=== PATIENT | female | born 1970 | race Caucasian/White ===

== ENCOUNTER 2018-06-09 09:13 | Inpatient (IN) | payer MEDICAID ==
[~2018-06-09] VITALS: Ht 172.7 cm; Wt 90.0 kg
[2018-06-09] VITALS (29 sets, daily range): BP systolic 104–137; BP diastolic 52–74; PULSE 55–93; TEMP 97.5–98.3
[~2018-06-09 09:13] MED LIST: CALCIUM 600600 M2 PO; MOTRIN 600600 MG/TAB PO; NORCO 325 MG-101 TAB PO; PERCOCET 325 MG1 TA2 PO; PRENATAL1 TA1 PO; PROTONIX 40MG T40 MG PO; PROTONIX20 MG PO
[2018-06-09 10:25] LABS: BASO # 0.1 (0.0-0.2); BASO % 0.5 % (0.0-2.0); EOS # 0.1 (0.0-0.7); EOS % 0.9 % (0-4.0); GRAN # 8.4 (1.4-6.5); GRAN % 79.7 % (42.2-75.2); LYMPH # 1.4 (1.2-3.4); LYMPH % 12.9 % (20.0-51.0); MEAN CELL VOLUME 92 fl (80.0-100.0); MEAN CORPUSCULAR HEMOGLOBIN 31 pg (27.0-31.0); MEAN CORPUSCULAR HGB CONC 33 g/dl (33.0-37.0); MEAN PLATELET VOLUME 10.8 fl (7.4-10.4); MONO # 0.6 (0.1-0.6); MONO % 5.3 % (1.7-9.3); PLATELET COUNT 265 K/mm3 (130-400); RED BLOOD COUNT 3.57 M/mm3 (4.10-5.30)
[2018-06-10 04:05] VITALS: BP 104/63; PULSE 79; TEMP 98.2
[2018-06-10 07:00] VITALS: BP 126/69; PULSE 75; TEMP 97.5
[2018-06-10] MEDS ORDERED: IBU600 MG PO (09:52)
[2018-06-10 12:00] VITALS: BP 107/53; PULSE 75
[2018-06-10 19:25] VITALS: BP 114/58; PULSE 61; TEMP 98.1
[2018-06-11 08:31] VITALS: BP 125/57; PULSE 70; TEMP 97.7
== END 2018-06-11 09:45 | disposition home or self-care (01) | DRG 805 ==
LOC: LDRO 09:13 → LDR 09:20 → OB 18:43
PROVIDERS: Obstetrics & Gynecology
PROC: 10E0XZZ Delivery of Products of Conception, External Approach (ICD-10-PCS; principal; 2018-06-09)
PROC: 0UQMXZZ Repair Vulva, External Approach (ICD-10-PCS; 2018-06-09)
DX: O70.0 First degree perineal laceration during delivery (principal); O45.93 Premature separation of placenta, unspecified, third trimester; Z37.0 Single live birth; Z3A.39 39 weeks gestation of pregnancy
CPT/HCPCS: J2590; J7120

== ENCOUNTER 2019-09-06 06:51 | Inpatient (IN) | payer MEDICAID ==
[~2019-09-06] VITALS: Ht 172.7 cm; Wt 86.4 kg
[2019-09-06] VITALS (41 sets, daily range): BP systolic 95–148; BP diastolic 52–89; PULSE 60–91; TEMP 97.2–98.6
[~2019-09-06 06:51] MED LIST changes: +IBU600 MG PO
[2019-09-06 07:44] LABS: BASO % 0.4 % (0.0-2.0); EOS # 0.1 (0.0-0.7); EOS % 1.9 % (0-4.0); GRAN # 4.5 (1.4-6.5); GRAN % 65.4 % (42.2-75.2); HEMOGLOBIN 10.9 g/dl (12.5-16.0); LYMPH # 1.5 (1.2-3.4); LYMPH % 22.1 % (20.0-51.0); MEAN CELL VOLUME 91 fl (80.0-100.0); MEAN CORPUSCULAR HEMOGLOBIN 31 pg (27.0-31.0); MEAN CORPUSCULAR HGB CONC 35 g/dl (33.0-37.0); MEAN PLATELET VOLUME 11.1 fl (7.4-10.4); MONO # 0.7 (0.1-0.6); MONO % 9.5 % (1.7-9.3); PLATELET COUNT 216 K/mm3 (130-400); RED BLOOD COUNT 3.47 M/mm3 (4.10-5.30); REDCELL DISTRIBUTION WIDTH-CV 13.1 % (11.5-14.5)
--- NOTE | 2019-09-06 07:45 | NUR ---
0735: Nena PUBLISHING MANAGER at bedside for epidural placement. 0740: Lidocaine. 0741: Single Shot given, no adverse reactions noted. 0745: Patient repositioned to left tilt. This RN remains at bedside.
[2019-09-06 07:46] LABS: HEMATOCRIT 31.6 % (37.0-47.0)
--- NOTE | 2019-09-06 07:53 | NUR ---
0700 PATIENT HERE FROM HOME WITH A SROM LARGE AMOUNT OF CLEAR FLUID. ASSESSMENT COMPLETED. IV STARTED IN LEFT HAND AND LR HUNG AT THIS TIME. EFM ON FHT 130 BABY VERY ACTIVE. NO CONTRACTIONS NOTED AT THIS TIME. DR LARSON CALLED AND UPDATED. SVE 3-4/-2 LARGE AMOUNT CLEAR FLUID NOTED. 0730 PITOCIN STARTED AT 2 AT THIS TIME. PATIENT SITS UP FOR EPIDURAL PLACEMENT REPORT GIVEN TO PILAR GUERRA RN TO ASSUME CARE.
--- NOTE | 2019-09-06 08:20 | NUR ---
0815: to bedside. SVE /-2, large amount of clear fluid with exam. 0820: Julian catheter placed. Patient repositioned to left lateral with peanut ball in place.
--- NOTE | 2019-09-06 09:20 | NUR ---
SVE unchanged per , /-2. Patient repositioned to right tilt with peanut ball in place.
--- NOTE | 2019-09-06 10:10 | NUR ---
to bedside. SVE unchanged per provider. Patient repositioned to "kathrin position". Denies needs. at bedside.
--- NOTE | 2019-09-06 11:00 | NUR ---
to bedside for variable deceleration into 50s. SVE unchanged. Patient repositioned to right lateral with peanut ball in place.
--- NOTE | 2019-09-06 11:15 | NUR ---
1105- Bedside report received from CHANDA Huang. Dr Medrano at nurses station reviewing strip. Pt tolerating labor well, comfortable with epidural.
--- NOTE | 2019-09-06 13:30 | NUR ---
1320- Recurrent FHR late decels noted. Pt repositioned to high fowlers.
--- NOTE | 2019-09-06 15:48 | NUR ---
1520- Pt reports feeling contractions and legs feeling normal, like epidural not working well. Shanae Quintero CRNA called to bedside. SVE by this RN, Pt complete/+2. Dr Medrano called for delivery. Room and Pt prepped. Iza, Nursery RN at bedside. 1535- Julian out. Pitocin off. 1545- Dr Medrano at bedside. 1548- Viable male infant born via . to mother's abd, tended to by nursery RN. Cord clamped and cut. Cord blood obtained. 155- Spontaneous delivery of placenta, Pitocin on at 333ml/hr. Fundus massaged to firm, moderate/heavy bleeding noted. Methergine order obtained, see EMAR. Pericare compelted and ice pack on. Pt resting comfortably.
--- NOTE | 2019-09-06 18:00 | NUR ---
1800- Pt ambulates to bathroom with standby assit x1. Voids without difficulty. Pt requests to shower, supplies given, at bedside. Pt tolerated well.
[2019-09-07 01:00] VITALS: BP 127/59; PULSE 88; TEMP 98.2
[2019-09-07 08:30] VITALS: BP 113/70; PULSE 70; TEMP 97.6
[2019-09-07] MEDS ORDERED: IBU800 M1 PO (11:05)
[2019-09-07 13:10] VITALS: BP 116/74; PULSE 71; TEMP 97.8
== END 2019-09-07 19:10 | disposition home or self-care (01) | DRG 805 ==
LOC: LDRO 06:51 → LDR 07:25 → OB 07:25
PROVIDERS: ADMIT Obstetrics & Gynecology
PROC: 10E0XZZ Delivery of Products of Conception, External Approach (ICD-10-PCS; principal; 2019-09-06)
PROC: 0KQM0ZZ Repair Perineum Muscle, Open Approach (ICD-10-PCS; 2019-09-06)
DX: O42.02 Full-term premature rupture of membranes, onset of labor within 24 hours of rupture (principal); O45.93 Premature separation of placenta, unspecified, third trimester; Z37.0 Single live birth; O71.4 Obstetric high vaginal laceration alone; Z3A.39 39 weeks gestation of pregnancy; O99.62 Diseases of the digestive system complicating childbirth; K21.9 Gastro-esophageal reflux disease without esophagitis; O99.02 Anemia complicating childbirth; G89.29 Other chronic pain; M54.9 Dorsalgia, unspecified; O40.3XX0 Polyhydramnios, third trimester, not applicable or unspecified; O75.89 Other specified complications of labor and delivery
CPT/HCPCS: J2210; J2590; J2795; J7120

== ENCOUNTER → 2019-12-07 | Outpatient (CLI) | payer MEDICAID ==
[~2019-12-07] MED LIST changes: +IBU800 M1 PO
== END ==
LOC: COL.RAD 14:15
DX: Z31.41 Encounter for fertility testing (principal); Z87.42 Personal history of other diseases of the female genital tract

== ENCOUNTER → 2020-02-11 | Outpatient (CLI) | payer MEDICAID | LOC: COL.LAB 10:36 | DX: O20.0 Threatened abortion (principal) ==

== ENCOUNTER 2020-08-24 13:43 | Inpatient (IN) | payer MEDICAID ==
[~2020-08-24] VITALS: Ht 172.7 cm; Wt 96.8 kg
[2020-08-24] VITALS (15 sets, daily range): BP systolic 92–134; BP diastolic 48–74; PULSE 69–93; TEMP 97.8–97.9
--- NOTE | 2020-08-24 13:30 | NUR ---
Patient arrived on our unit. States having bleeding. Assisted patient into gown. When standing she started to have vaginal bleeding. Pad saturated with golf ball size clot noted. Iv start to left hand by Essence Fox. Fluids of lactated ringers given as ordered. Lab obtained and sent to with Yudith henson 1350 Dr. Nunez here, visits with patient and spouse. 1415 Spec exam done by Dr. Nunez. Visits with patient about section. 1430 Ultra sound done by Dr. Nunez. 1500 Talks to patient about going ahead and doing section. Patient and spouse agree. Dr. Nunez let them know that we would call [facility] and visit with them about coming and get baby.
--- NOTE | 2020-08-24 14:30 | NUR ---
Rests in bed, alert. heart tones 120, accelerations noted, no decels. 1450 Betamethasone 12 mg given to left glueteal. 1455 Pepcid 20 mg iv given as ordered by anesthesia.
[2020-08-24 14:36] LABS: BASO # 0.1 (0.0-0.2); BASO % 0.8 % (0.0-2.0); EOS # 0.2 (0.0-0.7); EOS % 2.3 % (0-4.0); GRAN # 4.3 (1.4-6.5); GRAN % 66.4 % (42.2-75.2); LYMPH # 1.4 (1.2-3.4); MEAN CELL VOLUME 91 fl (80.0-100.0); MEAN CORPUSCULAR HGB CONC 33 g/dl (33.0-37.0); MEAN PLATELET VOLUME 10.9 fl (7.4-10.4); MONO # 0.5 (0.1-0.6); MONO % 7.7 % (1.7-9.3); PLATELET COUNT 254 K/mm3 (130-400); RED BLOOD COUNT 3.31 M/mm3 (4.10-5.30); REDCELL DISTRIBUTION WIDTH-CV 14.6 % (11.5-14.5)
[2020-08-24 14:39] LABS: HEMOGLOBIN 9.9 g/dl (12.5-16.0); MEAN CORPUSCULAR HEMOGLOBIN 30 pg (27.0-31.0)
[2020-08-24] MEDS ORDERED: CYMBALTA 20MG20 MG PO (15:20)
--- NOTE | 2020-08-24 17:15 | NUR ---
Rests in bed, alert. Report given by [facility] anesthesia. Denies any pain at this time. Methergine 0.2 mg im given as ordered.
--- NOTE | 2020-08-24 17:25 | NUR ---
Rests in bed, alert. Spouse at bedside. Denies any discomfort at this time.
--- NOTE | 2020-08-24 17:40 | NUR ---
Dismissed to room 210 via bed with this nurse and Ciarra. Doctor from [place] here, visits with patient and spouse.
[2020-08-25 01:00] VITALS: BP 127/72; PULSE 68; TEMP 98
[2020-08-25 04:52] VITALS: BP 110/58; PULSE 64; TEMP 97.6
[2020-08-25 09:22] VITALS: BP 110/64; PULSE 72; TEMP 97.9
--- NOTE | 2020-08-25 10:08 | NUR ---
Initial visit; Parents thanked Sales [employer] Customer Relations Rep for looking in on them, inquiring about their daughter who is in [place]. Parents were receptive to prayer for themselves and their daughter. [employer] Customer Relations Rep reminded them that she is available for them.
[2020-08-25] MEDS ORDERED: PERCOCET 325 MG1 TA2 PO (11:58)
[2020-08-25] MEDS ORDERED: IBU600 MG PO (11:58)
== END 2020-08-25 12:35 | disposition home or self-care (01) | DRG 788 ==
LOC: LDR 13:43 → OB 18:15
PROVIDERS: Obstetrics & Gynecology; ADMIT Obstetrics & Gynecology
PROC: 10D00Z1 Extraction of Products of Conception, Low, Open Approach (ICD-10-PCS; principal; 2020-08-24)
DX: O44.13 Complete placenta previa with hemorrhage, third trimester (principal); Z37.0 Single live birth; O99.344 Other mental disorders complicating childbirth; F41.9 Anxiety disorder, unspecified; F32.9 Major depressive disorder, single episode, unspecified; O99.02 Anemia complicating childbirth; D64.9 Anemia, unspecified; O99.62 Diseases of the digestive system complicating childbirth; K21.9 Gastro-esophageal reflux disease without esophagitis; Z3A.32 32 weeks gestation of pregnancy
CPT/HCPCS: J0690; J0702; J1885; J2210; J2370; J2405; J2590; J7120

== ENCOUNTER → 2021-10-05 | Outpatient (CLI) | payer MEDICAID ==
[~2021-10-05] MED LIST changes: +CYMBALTA 20MG20 MG PO
[2021-10-05 21:44] LABS: FOLLICLE STIMULATING HORMONE 10.3 mIU/mL (())
== END ==
LOC: COL.LAB 08:27 → COL.RAD 08:27
DX: Z31.41 Encounter for fertility testing (principal); Z32.00 Encounter for pregnancy test, result unknown; N97.8 Female infertility of other origin
CPT/HCPCS: 26115

== ENCOUNTER → 2022-01-06 | Outpatient (CLI) | payer MEDICAID ==
[2022-01-06 10:34] LABS: THYROID STIMULATING HORMONE 2.417 uIU/mL (0.350-4.940)
== END ==
LOC: COL.LAB 09:21
DX: Z32.01 Encounter for pregnancy test, result positive (principal)